=== PATIENT | male | born 1965 | race Caucasian/White ===

== ENCOUNTER 2019-06-21 08:05 | Day surgery (SDC) | payer MEDICAID ==
[~2019-06-21] VITALS: Ht 175.3 cm; Wt 89.4 kg
[2019-06-21] MEDS ORDERED: fentaNYL 0.05 MG/ML VIAL ONE (09:37)
[2019-06-21] MEDS ORDERED: LIDOCAINE 2% 100 MG/5 ML UJET TP ONE (09:38)
[2019-06-21] MEDS ORDERED: fentaNYL 0.05 MG/ML VIAL IVP ONE (11:00)
== END 2019-06-21 10:27 | disposition home or self-care (01) ==
LOC: MDS 08:05 → MMU 08:06 → MDS 10:27
PROVIDERS: ATTEND Internal Medicine Gastroenterology
DX: Z12.11 Encounter for screening for malignant neoplasm of colon (principal); F17.200 Nicotine dependence, unspecified, uncomplicated; Z79.899 Other long term (current) drug therapy
CPT/HCPCS: 45378; J3010